=== PATIENT | male | born 1995 | race Caucasian/White ===

== ENCOUNTER 2016-11-10 07:14 | Emergency (ER) | payer SELFPAY ==
[2016-11-10 07:29] VITALS: BMI 30.9
[2016-11-10] MEDS ORDERED: ZOFRAN INJ 4 MG VIAL ONE (07:31)
[2016-11-10] MEDS ORDERED: NS 1000 ML 1,000 ML ONE (07:31)
--- NOTE | 2016-11-10 07:36 | DR.GENAD ---
HPI - PCP Primary Care Physician: NFD - Complaint/Symptoms Chief Complaint Doctors Comments: Patient reports that he fell onto the carpeted floor from the recliner and hit his head. He c/o neck and low back pain. At some point he blacked out, now c/o right hip and leg pain. He had previous episode in the past. Chief Complaint:: PASSED OUT INTO CHAIR AND HIT HEAD. HAS HAD SHAKES, AND BODY ACHES, WITH PAIN THAT RADIATES FROM RIGHT FLANK TO RIGHT UPPPER QUAD. PT STATES HE HAS BEEN COUGHING UP BLACK STUFF - Source History Provided: Patient - Mode of Arrival Mode of Arrival: Ambulatory - Timing Onset of Chief Complaint: 11/09/16 <YURY HARVEY - Last Filed: 11/10/16 08:13> PMH - PMH Past Medical History: No Past Surgical History: Yes Surgical History: Abdominal Surgery, Appendectomy, Cholecystectomy - Family History History of Family Medical Conditions: Yes Family Medical History: Diabetes Mellitus, [place], Coronary Artery Disease, Heart Failure, Hypertension - Social History Alcohol Use: None Do you use any recreational Drugs:: Yes (THC) Lives With: Family Lives Where: Home - infectious screening In the last 2 months have you had wt loss of >10#?: NO Have you had fever, night sweats or hemotysis?: No Have you traveled outside the country in the last 6 months?: No Isolation: Standard <YURY HARVEY - Last Filed: 11/10/16 08:13> ROS - Review of Systems Constitutional: No Symptoms Reported Eyes: No Symptoms Reported ENTM: No Symptoms Reported Respiratoy: No Symptoms Reported Cardiovascular: No Symptoms Reported Gastrointestinal/Abdominal: No Symptoms Reported Genitourinary: No Symptoms Reported Neurological: No Symptoms Reported Musculoskeletal: Back Pain, Leg (right) Integumentary: No Symptoms Reported Hematologic/Lymphatic: No Symptoms Reported Endocrine: No Symptoms Reported Psychiatric: No Symptoms Reported All Other Systems: Reviewed and Negative <YURY HARVEY - Last Filed: 11/10/16 08:13> PE - General Limitations: No Limitations General Appearance: Alert, Anxious - Head Head Exam: Normal Inspection, Atraumatic - ENT ENT Exam: Normal Exam, Normal Oropharynx External Ear Exam: Normal External Inspection TM/Canal Exam: Bilateral Normal Nose Exam: Normal Nose Exam Mouth Exam: Normal Inspection Throat Exam: Normal Inspection - Neck Neck Exam: Normal Inspection - Chest Chest Inspection: Normal Inspection - Respiratory Respiratory Exam: Normal Lung Sounds Bilat Respiratory Exam: Bilateral Clear to Auscultation - Cardiovascular Cardiovascular Exam: Regular Rate - Abdominal Exam Abdominal Exam: Normal Inspection Abdominal Tenderness: negative: RUQ, RLQ, LUQ, LLQ, Epigastrium, Suprapubic, Diffuse, Mild, Moderate, Severe, Other - Extremities Extremities Exam: Normal Inspection, Full ROM - Back Back Exam: Normal Inspection - Neurologic Neurological Exam: Alert, Oriented X3, CN II-XII Intact - Psychiatric Psychiatric Exam: Agitated - Skin Skin Exam: Warm, Dry, Intact <YURY HARVEY - Last Filed: 11/10/16 08:13> MDM - Differential Diagnosis Differential Diagnosis: FRACTURER, CONTUSION, SPRAIN, STRAIN <DOROTHEA TRAN - Last Filed: 11/10/16 09:42> Course - Reevaluation 1st: Improved (IMPROVE WITH PAIN MED.) - Education/Counseling Education/Counseling: Patient, Education Educated On: Diagnosis, Needs for Follow Up <DOROTHEA TRAN - Last Filed: 11/10/16 09:42> ROR - Labs Reviewed Laboratory Results Reviewed?: Yes Result Diagrams: 11/10/16 07:36 11/10/16 07:36 - XRAY XRAY Interpreted by: Radiologist XRAY Findings: REPORT DISCUSS WITH PATIENT. <DOROTHEA TRAN - Last Filed: 11/10/16 09:42> - Labs Reviewed Laboratory: WBC 9.9 X10^3/uL (3.6-10.0) 11/10/16 07:36 RBC 5.76 X10^6/uL (4.7-6.0) 11/10/16 07:36 Hgb 16.2 g/dL (13.5-18.0) 11/10/16 07:36 Hct 47.6 % (42.0-54.0) 11/10/16 07:36 MCV 82.7 fL (80.0-100.0) 11/10/16 07:36 MCH 28.2 pg (27.0-34.0) 11/10/16 07:36 MCHC 34.1 g/dL (33.0-35.0) 11/10/16 07:36 RDW 13.8 % (11.6-16.5) 11/10/16 07:36 Plt Count 153 X10^3/uL (150.0-450.0) 11/10/16 07:36 MPV 12.1 fL (7.4-11.0) H 11/10/16 07:36 Neut % 88.0 % (42.0-75.0) H 11/10/16 07:36 Lymph % 3.6 % (21.0-51.0) L 11/10/16 07:36 [place] % 7.4 % (0.0-13.0) 11/10/16 07:36 Eos % 0.5 % (0.9-2.9) L 11/10/16 07:36 Baso % 0.5 % (0.2-1.0) 11/10/16 07:36 Neut # 8.8 x10^3/uL (2.2-4.8) H 11/10/16 07:36 Lymph # 0.4 X10^3/uL (1.3-2.9) L 11/10/16 07:36 [place] # 0.7 x10^3/uL (0.3-0.8) 11/10/16 07:36 Eos # 0.0 x10^3/uL (0.0-0.2) 11/10/16 07:36 Baso # 0.0 X10^3/uL (0.0-0.1) 11/10/16 07:36 Absolute Nucleated RBC 0.0 /100WBC 11/10/16 07:36 Sodium 140 mmol/L (136-145) 11/10/16 07:36 Corrected Sodium 140 mmol/L (136-145) 11/10/16 07:36 Potassium 3.9 mmol/L (3.5-5.1) 11/10/16 07:36 Chloride 101 mmol/L (98-107) 11/10/16 07:36 Carbon Dioxide 27.7 mmol/L (21-32) 11/10/16 07:36 BUN 9 mg/dL (7-18) 11/10/16 07:36 Creatinine 1.01 mg/dL (0.70-1.30) 11/10/16 07:36 Est GFR (MDRD) Af Amer > 60 (>60) 11/10/16 07:36 Est GFR (MDRD) Non-Af > 60 (>60) 11/10/16 07:36 Glucose 112 mg/dL (65-99) H 11/10/16 07:36 Calcium 9.2 mg/dL (8.5-10.1) 11/10/16 07:36 Corrected Calcium TNP 11/10/16 07:36 Total Bilirubin 0.50 mg/dL (0.2-1.0) 11/10/16 07:36 AST 31 Units/L (15-37) 11/10/16 07:36 ALT 60 Units/L (12-78) 11/10/16 07:36 Alkaline Phosphatase 79 Units/L (46-116) 11/10/16 07:36 Total Protein 8.5 g/dL (6.4-8.2) H 11/10/16 07:36 Albumin 4.7 g/dL (3.4-5.0) 11/10/16 07:36 Globulin 3.8 g/dL (2.5-4.5) 11/10/16 07:36 Albumin/Globulin Ratio 1.2 Ratio (1.1-2.1) 11/10/16 07:36 Specimen Type Clean catch urine 11/10/16 08:50 Urine Color Yellow (YELLOW) 11/10/16 08:50 Urine Appearance Clear (CLEAR) 11/10/16 08:50 Urine pH 8.0 (5.0 - 8.0) 11/10/16 08:50 Ur Specific [place] 1.015 (1.000-1.030) 11/10/16 08:50 Urine Protein Negative (NEGATIVE) 11/10/16 08:50 Urine Glucose (UA) Negative (NEGATIVE) 11/10/16 08:50 Urine Ketones Negative (NEGATIVE) 11/10/16 08:50 Urine Occult Blood Negative (NEGATIVE) 11/10/16 08:50 Urine Nitrite Negative (NEGATIVE) 11/10/16 08:50 Urine Bilirubin Negative (NEGATIVE) 11/10/16 08:50 Urine Urobilinogen Normal (NORMAL) 11/10/16 08:50 Ur Leukocyte Esterase Negative (NEGATIVE) 11/10/16 08:50 Urine RBC 0-1 /HPF (NEGATIVE) 11/10/16 08:50 Urine WBC 0-1 /HPF (NEGATIVE) 11/10/16 08:50 Ur Squamous Epith Cells Rare /HPF (NEGATIVE) 11/10/16 08:50 Urine Bacteria Negative /HPF (NEGATIVE) 11/10/16 08:50 Ur Culture Indicated? No/not indicated 11/10/16 08:50 H. pylori IgG Antibody Negative (NEGATIVE) 11/10/16 07:36 (DOROTHEA TRAN) <YURY HARVEY - Last Filed: 11/10/16 08:13> <DOROTHEA TRAN - Last Filed: 11/10/16 09:42> - Diagnosis Discharge Problem: Back pain Qualifiers: Back pain location: low back pain Chronicity: acute Back pain laterality: bilateral Sciatica presence: without sciatica Qualified Code(s): M54.5 - Low back pain Lumbosacral strain Qualifiers: Encounter type: initial encounter Qualified Code(s): S39.012A - Strain of muscle, fascia and tendon of lower back, initial encounter - Discharge Plan Condition: Stable Prescriptions: Cyclobenzaprine HCl [FLEXERIL 10 MG *] 10 mg PO TID #20 tab Ketorolac Tromethamine [Toradol Tab] 10 mg PO Q8H PRN #15 tab PRN Reason: Pain Ranitidine HCl [ZANTAC TAB 150 MG *] 150 mg PO BID #20 tab - Follow ups/Referrals Follow ups/Referrals: NFD,None [Primary Care Provider] - 2 days - Instructions Instructions: Lumbosacral Strain, Back Pain, Adult, [id number] Additional Instructions: RETURN TO ED IF WORSE.
[2016-11-10] MEDS ORDERED: MORPHINE SULFATE INJ 4 MG IVP ONE (07:39)
[2016-11-10] MEDS ORDERED: ZOFRAN INJ 4 MG VIAL IVP ONE (07:40)
[2016-11-10] MEDS ORDERED: MORPHINE SULFATE INJ 4 MG ONE (07:42)
[2016-11-10] MEDS ORDERED: NS 1000 ML 1,000 ML IV SCH (08:00)
--- NOTE | 2016-11-10 08:24 | RAD ---
Examination: X-rays of the right hip. Clinical history: Fell, right hip pain. Technique: An AP view of the pelvis and a frog-leg lateral view of the right hip were obtained. Comparison: None available. Findings: No acute fracture, dislocation, or destructive bony lesion is noted. No arthropathy is noted at the hips bilaterally. Calcific densities are seen overlying the pelvis, likely due to phleboliths. A soft tissue opacity i s seen overlying the pelvis, likely a partially filled bladder. Impression: 1. No acute fracture or dislocation. Reported By:
--- NOTE | 2016-11-10 08:25 | RAD ---
Examination: X-rays of the lumbar spine. Clinical History: Fell, low back pain. Technique: Three views of the lumbar spine were obtained. Comparison: None available. Findings: The vertebral body alignment is within normal limits. The intervertebral disc spaces are well maintained. No arthropathy is noted. No acute fracture, dislocation or destructive bony lesion is noted. No spondylolysis or spondylolist hesis is noted. Surgical clips are seen overlying the right upper abdomen consistent with a prior cholecystectomy. C alcific densities are seen overlying the pelvis, likely to phleboliths. A soft tissue opacity is see n overlying the pelvis, likely a partially filled bladder. Impression: 1. No acute fracture or dislocation. Reported By:
--- NOTE | 2016-11-10 08:28 | CT ---
HISTORY: Fall, headache, vomiting Study: CT brain without contrast Comparison: March 30, 2016 Technique: Multiple axial images of the brain were obtained from the skull base to the vertex without administr ation of IV contrast. Findings: No acute intraparenchymal hemorrhage or mass can be identified. No extra-axial fluid collections ar e seen. No alteration in the attenuation of the brain parenchyma can be identified to suggest acute or subacute ischemic change. The ventricular system is symmetric and nondilated. Minimal mucosal thickening is seen within the right maxillary sinus. If symptoms or clinical concern persist recomme nd continued followup for further evaluation. IMPRESSION: 1. No acute intracranial process can be identified. Reported By:
--- NOTE | 2016-11-10 08:34 | CT ---
HISTORY: Fall Study: CT cervical spine without contrast Comparison: None Technique: Multiple axial images of the cervical spine were obtained from the skull base to the thor acic inlet without administration of IV contrast. Sagittal and coronal reformats were performed and reviewed. Findings: The cervical vertebral body heights are relatively maintained. No evidence for acute cortical disru ption or subluxation can be seen. The central canal remains free of compromise from bony fragments. The posterior elements appear unremarkable. The prevertebral soft tissues are normal in their robby earance. In addition, the surrounding paraspinous soft tissues are unremarkable. If symptoms or cli nical concern persist correlation with MRI may be helpful. IMPRESSION: 1. No evidence of acute osseous abnormality is appreciated. Reported By:
[2016-11-10] MEDS ORDERED: PROTONIX INJ 40 MG VIAL IVP ONE (08:41)
[2016-11-10] MEDS ORDERED: TORADOL 30 MG VIAL IVP ONE (08:41)
[2016-11-10 08:50] LABS: BASOPHILS % (AUTO) 0.5 % (0.2-1.0); EOSINOPHILS % (AUTO) 0.5 % (0.9-2.9); HEMATOCRIT 47.6 % (42.0-54.0); HEMOGLOBIN 16.2 g/dL (13.5-18.0); LYMPHOCYTES # (AUTO) 0.4 X10^3/uL (1.3-2.9); LYMPHOCYTES % (AUTO) 3.6 % (21.0-51.0); MEAN CORPUSCULAR HEMOGLOBIN 28.2 pg (27.0-34.0); MEAN CORPUSCULAR HGB CONC 34.1 g/dL (33.0-35.0); MEAN CORPUSCULAR VOLUME 82.7 fL (80.0-100.0); MEAN PLATELET VOLUME 12.1 fL (7.4-11.0); MONOCYTES # (AUTO) 0.7 x10^3/uL (0.3-0.8); MONOCYTES % (AUTO) 7.4 % (0.0-13.0); NEUTROPHILS # (AUTO) 8.8 x10^3/uL (2.2-4.8); PLATELET COUNT 153 X10^3/uL (150.0-450.0); RED BLOOD COUNT 5.76 X10^6/uL (4.7-6.0); RED CELL DISTRIBUTION WIDTH 13.8 % (11.6-16.5); WHITE BLOOD COUNT 9.9 X10^3/uL (3.6-10.0)
[2016-11-10] MEDS ORDERED: TORADOL 30 MG VIAL ONE (08:57)
[2016-11-10] MEDS ORDERED: PROTONIX INJ 40 MG VIAL ONE (08:57)
[2016-11-10 09:01] LABS: ALANINE AMINOTRANSFERASE 60 Units/L (12-78); ALBUMIN 4.7 g/dL (3.4-5.0); ALKALINE PHOSPHATASE 79 Units/L (46-116); ASPARTATE AMINO TRANSFERASE 31 Units/L (15-37); BLOOD UREA NITROGEN 9 mg/dL (7-18); CALCIUM 9.2 mg/dL (8.5-10.1); CARBON DIOXIDE 27.7 mmol/L (21-32); CHLORIDE 101 mmol/L (98-107); COR NA(FOR HYPERGLY) 140 mmol/L (136-145); CREATININE 1.01 mg/dL (0.70-1.30); GLUCOSE 112 mg/dL (65-99); SODIUM 140 mmol/L (136-145); TOTAL PROTEIN 8.5 g/dL (6.4-8.2); eGFR BLACK RACES > 60 (>60); eGFR NON BLACK RACES > 60 (>60)
[2016-11-10 09:10] LABS: BILIRUBIN,URINE NEGATIVE (NEGATIVE); BLOOD/HEMOGLOBIN,URINE NEGATIVE (NEGATIVE); GLUCOSE, URINE NEGATIVE (NEGATIVE); KETONES,URINE NEGATIVE (NEGATIVE); LEUKOCYTE ESTERASE ,URINE NEGATIVE (NEGATIVE); NITRITES,URINE NEGATIVE (NEGATIVE); PROTEIN,URINE NEGATIVE (NEGATIVE); UROBILINOGEN,URINE NORMAL (NORMAL)
[2016-11-10 09:18] LABS: APPEARANCE,URINE CLEAR (CLEAR); BACTERIA,URINE NEGATIVE /HPF (NEGATIVE); COLOR,URINE YELLOW (YELLOW); RBC,URINE 0-1 /HPF (NEGATIVE); SQUAMOUS EPITHELIAL CELL,UR RARE /HPF (NEGATIVE)
[2016-11-10 09:39] VITALS: BP 120/56
== END 2016-11-10 09:37 | disposition home or self-care (01) ==
LOC: ER 07:14
DX: S39.012A Strain of muscle, fascia and tendon of lower back, initial encounter (principal); M54.5 Low back pain; W01.198A Fall on same level from slipping, tripping and stumbling with subsequent striking against other object, initial encounter; Y92.9 Unspecified place or not applicable
CPT/HCPCS: 36415; 70450; 72100; 72125; 73501; 80053; 81001; 85025; 86677; 96365; 96367; 96374; 96375; 99283; A4222; C9113; J1885; J2270; J2405

== ENCOUNTER 2017-03-19 08:09 | Emergency (ER) | payer SELFPAY ==
[2017-03-19 08:15] VITALS: BP 160/84; BMI 29.3
--- NOTE | 2017-03-19 09:34 | DR.GENAD ---
HPI - PCP Primary Care Physician: NFD - HPI Comment HPI Comment: Pt c/o 2-3 h/o RUQ pain with loose stools but no fever, chills, sweats or vomiting. He is s/p cholecystectomy and appendectomy but is concerned due to family h/o pancreatic cancer. - Complaint/Symptoms Chief Complaint Doctors Comments: "RUQ pain" Chief Complaint:: PT C/O RUQ PAIN WITH DIARRHEA THAT STARTED THURSDAY. PT STATES THE PAIN HAS BEEN GETTING WORSE AND HE HAS NOTICED BLOOD IN HIS STOOL. - Nurses notes reviewed Nurses Notes Review: Yes - Source History Provided: Patient - Mode of Arrival Mode of Arrival: Ambulatory - Timing Onset of Chief Complaint: 03/17/17 Came on: Gradually - Duration Duration: Intermittent How lon Duration: Days - Location Location: RUQ - Severity Severity: Moderate - Modifying Factors Worsens:: lifting, loose stools worse after eating pork chops Improves:: rest PMH - PMH Past Medical History: No Past Surgical History: Yes Surgical History: Abdominal Surgery, Appendectomy, Cholecystectomy - Family History History of Family Medical Conditions: Yes Family Medical History: Diabetes Mellitus, [place], Coronary Artery Disease, Heart Failure, Hypertension Family Medical History Comment: PANCREATIC [place] - Social History Does any household member use tobacco: No Alcohol Use: None Do you use any recreational Drugs:: No Lives With: Alone Lives Where: Home - infectious screening In the last 2 months have you had wt loss of >10#?: NO Have you had fever, night sweats or hemotysis?: No Have you traveled outside the country in the last 6 months?: No Isolation: Standard ROS - Review of Systems Constitutional: No Symptoms Reported Respiratoy: No Symptoms Reported Cardiovascular: No Symptoms Reported Gastrointestinal/Abdominal: See HPI Genitourinary: No Symptoms Reported Neurological: No Symptoms Reported Musculoskeletal: No Symptoms Reported, Muscle Pain Integumentary: No Symptoms Reported Hematologic/Lymphatic: No Symptoms Reported Endocrine: No Symptoms Reported Psychiatric: No Symptoms Reported All Other Systems: Reviewed and Negative PE - Vital Signs Vitals: Temperature 98.6 F Pulse Rate 82 Respiratory Rate 20 Blood Pressure [Left Arm] 120/56 Blood Pressure [Right Arm] 141/70 Blood Pressure 160/84 O2 Sat by Pulse Oximetry 99 - General Limitations: No Limitations General Appearance: Alert, In No Apparent Distress - Head Head Exam: Normal Inspection - ENT Throat Exam: Normal Inspection - Neck Neck Exam: Normal Inspection, Full ROM, Trachea Midline - Chest Chest Inspection: Normal Inspection, Symmetric Chest Wall Rise - Respiratory Respiratory Exam: Normal Lung Sounds Bilat Respiratory Exam: Bilateral Clear to Auscultation - Cardiovascular Cardiovascular Exam: Regular Rate, Normal Rhythm, Normal Heart Sounds - Abdominal Exam Abdominal Exam: Soft, Tenderness (mild right para epigastric TTP). negative: Rebound, Dimnished Bowel Sounds, Organomegaly, Trauma, Mass, Bruit, Pulsatile Mass Abdominal Tenderness: RUQ, Epigastrium - Extremities Extremities Exam: Normal Inspection - Back Back Exam: Normal Inspection - Neurologic Neurological Exam: Alert, Oriented X3, CN II-XII Intact - Psychiatric Psychiatric Exam: Normal Affect, Normal Mood - Skin Skin Exam: Warm, Dry, Intact, Normal Color MDM - Differential Diagnosis Differential Diagnosis: Gastritis, Dumping Syndrome, Dyspepsia Course - Reevaluation 1st: Unchanged ROR - Labs Reviewed Laboratory Results Reviewed?: Yes Result Diagrams: 03/19/17 09:25 03/19/17 09:25 Laboratory: WBC 8.1 X10^3/uL (3.6-10.0) 03/19/17 09:25 RBC 6.01 X10^6/uL (4.7-6.0) H 03/19/17 09:25 Hgb 17.3 g/dL (13.5-18.0) 03/19/17 09:25 Hct 50.4 % (42.0-54.0) 03/19/17 09:25 MCV 83.8 fL (80.0-100.0) 03/19/17 09:25 MCH 28.8 pg (27.0-34.0) 03/19/17 09:25 MCHC 34.4 g/dL (33.0-35.0) 03/19/17 09:25 RDW 13.7 % (11.6-16.5) 03/19/17 09:25 Plt Count 184 X10^3/uL (150.0-450.0) 03/19/17 09:25 MPV 11.3 fL (7.4-11.0) H 03/19/17 09:25 Neut % 70.2 % (42.0-75.0) 03/19/17 09:25 Lymph % 20.3 % (21.0-51.0) L 08/10/17 09:25 [place] % 7.4 % (0.0-13.0) 03/19/17 09:25 Eos % 1.4 % (0.9-2.9) 03/19/17 09:25 Baso % 0.7 % (0.2-1.0) 03/19/17 09:25 Neut # 5.7 x10^3/uL (2.2-4.8) H 03/19/17 09:25 Lymph # 1.6 X10^3/uL (1.3-2.9) 03/19/17 09:25 [place] # 0.6 x10^3/uL (0.3-0.8) 03/19/17 09:25 Eos # 0.1 x10^3/uL (0.0-0.2) 03/19/17 09:25 Baso # 0.1 X10^3/uL (0.0-0.1) 03/19/17 09:25 Absolute Nucleated RBC 0.1 /100WBC 03/19/17 09:25 Sodium 138 mmol/L (136-145) 03/19/17 09:25 Corrected Sodium TNP 03/19/17 09:25 Potassium 4.2 mmol/L (3.5-5.1) 03/19/17 09:25 Chloride 102 mmol/L (98-107) 03/19/17 09:25 Carbon Dioxide 29.5 mmol/L (21-32) 03/19/17 09:25 BUN 11 mg/dL (7-18) 03/19/17 09:25 Creatinine 0.86 mg/dL (0.70-1.30) 03/19/17 09:25 Est GFR (MDRD) Af Amer > 60 (>60) 03/19/17 09:25 Est GFR (MDRD) Non-Af > 60 (>60) 03/19/17 09:25 Glucose 93 mg/dL (65-99) 03/19/17 09:25 Calcium 8.9 mg/dL (8.5-10.1) 03/19/17 09:25 Corrected Calcium TNP 03/19/17 09:25 Total Bilirubin 0.60 mg/dL (0.2-1.0) 03/19/17 09:25 AST 26 Units/L (15-37) 03/19/17 09:25 ALT 51 Units/L (12-78) 03/19/17 09:25 Alkaline Phosphatase 70 Units/L (46-116) 03/19/17 09:25 Total Protein 8.3 g/dL (6.4-8.2) H 03/19/17 09:25 Albumin 4.2 g/dL (3.4-5.0) 03/19/17 09:25 Globulin 4.1 g/dL (2.5-4.5) 03/19/17 09:25 Albumin/Globulin Ratio 1.0 Ratio (1.1-2.1) L 03/19/17 09:25 Amylase 61 Units/L (25-115) 03/19/17 09:25 Lipase 182 Units/L (73-393) 03/19/17 09:25 H. pylori IgG Antibody Negative (NEGATIVE) 03/19/17 09:25 - XRAY XRAY Interpreted by: Radiologist (no acute intraabdominal process is noted.) - Diagnosis Discharge Problem: RUQ pain, Post-cholecystectomy syndrome - Discharge Plan Disposition: HOME, SELF-CARE Condition: Stable - Follow ups/Referrals Follow ups/Referrals: NFD,None [Primary Care Provider] - 3 days - Instructions Instructions: Laparoscopic Cholecystectomy, Care After, [id number], Abdominal Pain, Adult, [id number], Gastritis, Adult
[2017-03-19 09:42] LABS: BASOPHILS # (AUTO) 0.1 X10^3/uL (0.0-0.1); BASOPHILS % (AUTO) 0.7 % (0.2-1.0); EOSINOPHILS # (AUTO) 0.1 x10^3/uL (0.0-0.2); EOSINOPHILS % (AUTO) 1.4 % (0.9-2.9); HEMATOCRIT 50.4 % (42.0-54.0); HEMOGLOBIN 17.3 g/dL (13.5-18.0); LYMPHOCYTES # (AUTO) 1.6 X10^3/uL (1.3-2.9); LYMPHOCYTES % (AUTO) 20.3 % (21.0-51.0); MEAN CORPUSCULAR HEMOGLOBIN 28.8 pg (27.0-34.0); MEAN CORPUSCULAR HGB CONC 34.4 g/dL (33.0-35.0); MEAN CORPUSCULAR VOLUME 83.8 fL (80.0-100.0); MEAN PLATELET VOLUME 11.3 fL (7.4-11.0); MONOCYTES # (AUTO) 0.6 x10^3/uL (0.3-0.8); MONOCYTES % (AUTO) 7.4 % (0.0-13.0); NEUTROPHILS # (AUTO) 5.7 x10^3/uL (2.2-4.8); NEUTROPHILS % (AUTO) 70.2 % (42.0-75.0); PLATELET COUNT 184 X10^3/uL (150.0-450.0); RED BLOOD COUNT 6.01 X10^6/uL (4.7-6.0); RED CELL DISTRIBUTION WIDTH 13.7 % (11.6-16.5); WHITE BLOOD COUNT 8.1 X10^3/uL (3.6-10.0)
--- NOTE | 2017-03-19 09:47 | RAD ---
HISTORY: Right upper quadrant pain Study: Acute abdominal series Comparison: None Findings: Cardiac silhouette is normal in size. No focal consolidation or pleural effusion is identified. The osseous thorax is unremarkable. The bowel gas pattern is nonobstructive. No convincing pneumatosis or free intraperitoneal air is id entified. Prior cholecystectomy is noted. No pathologic calcifications are identified. Regional skel eton is intact. IMPRESSION: 1. No acute cardiopulmonary disease. 2. No acute abdominal abnormality. Reported By:
[2017-03-19 10:01] LABS: AMYLASE 61 Units/L (25-115); LIPASE 182 Units/L (73-393)
[2017-03-19 10:04] LABS: ALANINE AMINOTRANSFERASE 51 Units/L (12-78); ALBUMIN 4.2 g/dL (3.4-5.0); ALKALINE PHOSPHATASE 70 Units/L (46-116); ASPARTATE AMINO TRANSFERASE 26 Units/L (15-37); BLOOD UREA NITROGEN 11 mg/dL (7-18); CALCIUM 8.9 mg/dL (8.5-10.1); CARBON DIOXIDE 29.5 mmol/L (21-32); CHLORIDE 102 mmol/L (98-107); CREATININE 0.86 mg/dL (0.70-1.30); GLUCOSE 93 mg/dL (65-99); SODIUM 138 mmol/L (136-145); TOTAL PROTEIN 8.3 g/dL (6.4-8.2); eGFR BLACK RACES > 60 (>60); eGFR NON BLACK RACES > 60 (>60)
== END 2017-03-19 10:29 | disposition home or self-care (01) ==
LOC: ER 08:51
DX: R10.11 Right upper quadrant pain (principal); K91.5 Postcholecystectomy syndrome
CPT/HCPCS: 36415; 74022; 80053; 82150; 83690; 85025; 86677; 99282; 99283

== ENCOUNTER 2017-05-19 08:51 | Emergency (ER) | payer SELFPAY ==
[2017-05-19 08:55] VITALS: BP 141/71; BMI 29.3
[2017-05-19 10:02] LABS: BILIRUBIN,URINE NEGATIVE (NEGATIVE); BLOOD/HEMOGLOBIN,URINE NEGATIVE (NEGATIVE); GLUCOSE, URINE NEGATIVE (NEGATIVE); KETONES,URINE NEGATIVE (NEGATIVE); LEUKOCYTE ESTERASE ,URINE NEGATIVE (NEGATIVE); NITRITES,URINE NEGATIVE (NEGATIVE); PROTEIN,URINE NEGATIVE (NEGATIVE); UROBILINOGEN,URINE NORMAL (NORMAL)
[2017-05-19 10:12] LABS: APPEARANCE,URINE CLEAR (CLEAR); BACTERIA,URINE NEGATIVE /HPF (NEGATIVE); COLOR,URINE YELLOW (YELLOW); RBC,URINE NONE SEEN /HPF (NEGATIVE); SQUAMOUS EPITHELIAL CELL,UR FEW /HPF (NEGATIVE)
[2017-05-19 10:14] LABS: BASOPHILS # (AUTO) 0.1 X10^3/uL (0.0-0.1); BASOPHILS % (AUTO) 0.9 % (0.2-1.0); EOSINOPHILS # (AUTO) 0.2 x10^3/uL (0.0-0.2); EOSINOPHILS % (AUTO) 2.5 % (0.9-2.9); HEMATOCRIT 47.1 % (42.0-54.0); HEMOGLOBIN 16.3 g/dL (13.5-18.0); LYMPHOCYTES # (AUTO) 1.7 X10^3/uL (1.3-2.9); LYMPHOCYTES % (AUTO) 22.6 % (21.0-51.0); MEAN CORPUSCULAR HEMOGLOBIN 28.5 pg (27.0-34.0); MEAN CORPUSCULAR HGB CONC 34.6 g/dL (33.0-35.0); MEAN CORPUSCULAR VOLUME 82.3 fL (80.0-100.0); MEAN PLATELET VOLUME 11.1 fL (7.4-11.0); MONOCYTES # (AUTO) 0.5 x10^3/uL (0.3-0.8); MONOCYTES % (AUTO) 6.9 % (0.0-13.0); NEUTROPHILS % (AUTO) 67.1 % (42.0-75.0); PLATELET COUNT 158 X10^3/uL (150.0-450.0); RED BLOOD COUNT 5.73 X10^6/uL (4.7-6.0); RED CELL DISTRIBUTION WIDTH 13.4 % (11.6-16.5); WHITE BLOOD COUNT 7.4 X10^3/uL (3.6-10.0)
[2017-05-19 10:27] LABS: ALANINE AMINOTRANSFERASE 60 Units/L (12-78); ALBUMIN 4.1 g/dL (3.4-5.0); ALKALINE PHOSPHATASE 74 Units/L (46-116); ASPARTATE AMINO TRANSFERASE 25 Units/L (15-37); BLOOD UREA NITROGEN 12 mg/dL (7-18); CALCIUM 9.5 mg/dL (8.5-10.1); CARBON DIOXIDE 29.6 mmol/L (21-32); CHLORIDE 104 mmol/L (98-107); CREATININE 0.95 mg/dL (0.70-1.30); SODIUM 141 mmol/L (136-145); TOTAL PROTEIN 7.9 g/dL (6.4-8.2); eGFR BLACK RACES > 60 (>60); eGFR NON BLACK RACES > 60 (>60)
--- NOTE | 2017-05-19 10:40 | DR.GENAD ---
HPI - PCP Primary Care Physician: gray - HPI Comment HPI Comment: NOTED BLOOD, RED IN VOMITUS. NO DIARRHEA OR MELENA. - Complaint/Symptoms Chief Complaint Doctors Comments: EPIGASTRIC ABDOMINAL PAIN WITH VOMITING 3 TIMES TODAY. Chief Complaint:: patient stated he was hurting in his abd and vomited 3 times and noticed blood in his vomit. he stated he abd stoped hurting after that. - Nurses notes reviewed Nurses Notes Review: Yes - Source History Provided: Patient - Mode of Arrival Mode of Arrival: Ambulatory - Timing Onset of Chief Complaint: 05/19/17 Came on: Suddenly - Duration Duration: Constant Duration: Hours - Severity Severity: Moderate PMH - PMH Past Medical History: Yes Past Medical History: GERD Past Surgical History: Yes Surgical History: Appendectomy, Cholecystectomy - Family History History of Family Medical Conditions: No Family Medical History: Diabetes Mellitus, [place], Coronary Artery Disease, Heart Failure, Hypertension - Social History Does patient currently use any type of tobacco product: No Have you used tobacco products in the last 12 months: No Type of Tobacco Use: None Does any household member use tobacco: No Alcohol Use: None Do you use any recreational Drugs:: No Lives With: Family Lives Where: Home - infectious screening In the last 2 months have you had wt loss of >10#?: NO Have you had fever, night sweats or hemotysis?: No Have you traveled outside the country in the last 6 months?: No Isolation: Standard ROS - Review of Systems Constitutional: No Symptoms Reported Eyes: No Symptoms Reported ENTM: No Symptoms Reported Respiratoy: No Symptoms Reported Cardiovascular: No Symptoms Reported Gastrointestinal/Abdominal: Abdominal Pain, Nausea Genitourinary: No Symptoms Reported Neurological: No Symptoms Reported Musculoskeletal: No Symptoms Reported Integumentary: No Symptoms Reported Hematologic/Lymphatic: No Symptoms Reported Endocrine: No Symptoms Reported All Other Systems: Reviewed and Negative PE - Vital Signs Vitals: Temperature 98.7 F Pulse Rate 66 Respiratory Rate 16 Blood Pressure [Left Arm] 120/56 Blood Pressure [Right Arm] 141/70 Blood Pressure 141/71 O2 Sat by Pulse Oximetry 100 - General Limitations: No Limitations General Appearance: Alert - Head Head Exam: Normal Inspection - Eyes Eye exam: Normal Appearance - ENT ENT Exam: Normal External Ear Exam External Ear Exam: Normal External Inspection TM/Canal Exam: Bilateral Normal Nose Exam: Normal Nose Exam Mouth Exam: Normal Inspection Throat Exam: Normal Inspection - Neck Neck Exam: Normal Inspection, Trachea Midline - Chest Chest Inspection: Symmetric Chest Wall Rise - Respiratory Respiratory Exam: Normal Lung Sounds Bilat Respiratory Exam: Bilateral Clear to Auscultation - Cardiovascular Cardiovascular Exam: Regular Rate, Normal Rhythm, Normal Heart Sounds - Abdominal Exam Abdominal Exam: Normal Bowel Sounds, Soft, Tenderness Abdominal Tenderness: Epigastrium, Moderate - Extremities Extremities Exam: Normal Inspection - Back Back Exam: Normal Inspection - Neurologic Neurological Exam: Alert, Oriented X3 - Psychiatric Psychiatric Exam: Normal Affect, Normal Mood - Skin Skin Exam: Normal Color MDM - Differential Diagnosis Differential Diagnosis: EPIGASTRIC PAIN, PUD, REFLUX ESOPHAGITIS Course - Treatment Treatment: SEE ORDERS. - Education/Counseling Education/Counseling: Patient, Education Educated On: Treatment, Diagnosis, Needs for Follow Up ROR - Labs Reviewed Laboratory Results Reviewed?: Yes Result Diagrams: 05/19/17 10:10 05/19/17 10:10 Laboratory: WBC 7.4 X10^3/uL (3.6-10.0) 05/19/17 10:10 RBC 5.73 X10^6/uL (4.7-6.0) 05/19/17 10:10 Hgb 16.3 g/dL (13.5-18.0) 05/19/17 10:10 Hct 47.1 % (42.0-54.0) 05/19/17 10:10 MCV 82.3 fL (80.0-100.0) 05/19/17 10:10 MCH 28.5 pg (27.0-34.0) 05/19/17 10:10 MCHC 34.6 g/dL (33.0-35.0) 05/19/17 10:10 RDW 13.4 % (11.6-16.5) 05/19/17 10:10 Plt Count 158 X10^3/uL (150.0-450.0) 05/19/17 10:10 MPV 11.1 fL (7.4-11.0) H 05/19/17 10:10 Neut % 67.1 % (42.0-75.0) 05/19/17 10:10 Lymph % 22.6 % (21.0-51.0) 05/19/17 10:10 [place] % 6.9 % (0.0-13.0) 05/19/17 10:10 Eos % 2.5 % (0.9-2.9) 05/19/17 10:10 Baso % 0.9 % (0.2-1.0) 05/19/17 10:10 Neut # 5.0 x10^3/uL (2.2-4.8) H 05/19/17 10:10 Lymph # 1.7 X10^3/uL (1.3-2.9) 05/19/17 10:10 [place] # 0.5 x10^3/uL (0.3-0.8) 05/19/17 10:10 Eos # 0.2 x10^3/uL (0.0-0.2) 05/19/17 10:10 Baso # 0.1 X10^3/uL (0.0-0.1) 05/19/17 10:10 Absolute Nucleated RBC 0.0 /100WBC 05/19/17 10:10 Sodium 141 mmol/L (136-145) 05/19/17 10:10 Corrected Sodium TNP 05/19/17 10:10 Potassium 4.4 mmol/L (3.5-5.1) 05/19/17 10:10 Chloride 104 mmol/L (98-107) 05/19/17 10:10 Carbon Dioxide 29.6 mmol/L (21-32) 05/19/17 10:10 BUN 12 mg/dL (7-18) 05/19/17 10:10 Creatinine 0.95 mg/dL (0.70-1.30) 05/19/17 10:10 Est GFR (MDRD) Af Amer > 60 (>60) 05/19/17 10:10 Est GFR (MDRD) Non-Af > 60 (>60) 05/19/17 10:10 Glucose 96 mg/dL (65-99) 05/19/17 10:10 Calcium 9.5 mg/dL (8.5-10.1) 05/19/17 10:10 Corrected Calcium TNP 05/19/17 10:10 Total Bilirubin 0.30 mg/dL (0.2-1.0) 05/19/17 10:10 AST 25 Units/L (15-37) 05/19/17 10:10 ALT 60 Units/L (12-78) 05/19/17 10:10 Alkaline Phosphatase 74 Units/L (46-116) 05/19/17 10:10 Total Protein 7.9 g/dL (6.4-8.2) 05/19/17 10:10 Albumin 4.1 g/dL (3.4-5.0) 05/19/17 10:10 Globulin 3.8 g/dL (2.5-4.5) 05/19/17 10:10 Albumin/Globulin Ratio 1.1 Ratio (1.1-2.1) 05/19/17 10:10 Specimen Type Clean catch urine 05/19/17 09:45 Urine Color Yellow (YELLOW) 05/19/17 09:45 Urine Appearance Clear (CLEAR) 05/19/17 09:45 Urine pH 6.0 (5.0 - 8.0) 05/19/17 09:45 Ur Specific [place] 1.010 (1.000-1.030) 05/19/17 09:45 Urine Protein Negative (NEGATIVE) 05/19/17 09:45 Urine Glucose (UA) Negative (NEGATIVE) 05/19/17 09:45 Urine Ketones Negative (NEGATIVE) 05/19/17 09:45 Urine Occult Blood Negative (NEGATIVE) 05/19/17 09:45 Urine Nitrite Negative (NEGATIVE) 05/19/17 09:45 Urine Bilirubin Negative (NEGATIVE) 05/19/17 09:45 Urine Urobilinogen Normal (NORMAL) 05/19/17 09:45 Ur Leukocyte Esterase Negative (NEGATIVE) 05/19/17 09:45 Urine RBC None seen /HPF (NEGATIVE) 05/19/17 09:45 Urine WBC None seen /HPF (NEGATIVE) 05/19/17 09:45 Ur Squamous Epith Cells Few /HPF (NEGATIVE) 05/19/17 09:45 Urine Bacteria Negative /HPF (NEGATIVE) 05/19/17 09:45 Ur Culture Indicated? No/not indicated 05/19/17 09:45 H. pylori IgG Antibody Negative (NEGATIVE) 05/19/17 10:10 - XRAY XRAY Interpreted by: Radiologist XRAY Findings: REPORT DISCUSS WITH PATIENT. - Diagnosis Discharge Problem: Abdominal pain Qualifiers: Abdominal location: upper abdomen, unspecified Qualified Code(s): R10.10 - Upper abdominal pain, unspecified - Discharge Plan Disposition: 01 HOME, SELF-CARE Condition: Stable Prescriptions: Esomeprazole Magnesium [Nexium] 40 mg PO HS #30 cap Gi Cocktail [LEVSIN/Maalox/Lidoc Visc (GI COCKTAIL) *] 30 ml PO QID #240 ml - Follow ups/Referrals Follow ups/Referrals: HERVE OTOOLE [Primary Care Provider] - 3 days - Instructions Instructions: Abdominal Pain, Adult, [id number] Additional Instructions: RETURN TO ED IF WORSE.
[2017-05-19] MEDS ORDERED: LEVSIN/MAALOX/LIDOC VISC ONE (12:19)
[2017-05-19] MEDS ORDERED: PROTONIX TAB 40 MG PO ONE (12:19)
[2017-05-19] MEDS: PROTONIX TAB 40 MG PO ONE (12:21)
[2017-05-19] MEDS: LEVSIN/MAALOX/LIDOC VISC PO ONE (12:22)
--- NOTE | 2017-05-19 12:28 | RAD ---
HISTORY: Abdominal pain Study: Acute abdominal series Comparison: 03/19/2017 Findings: The lungs are clear without consolidation, effusion or pneumothorax. The cardiac and mediastinal con tours are within normal limits. Flat plate and upright evaluation of the abdomen demonstrates a normal bowel gas pattern. No gross fr ee intraperitoneal air. No pathological soft tissue mass or calcification can be observed. The bony structures are grossly intact. Cholecystectomy clips are noted. IMPRESSION: 1. No acute cardiopulmonary disease. 2. No evidence of acute abdominal pathology. Reported By:
== END 2017-05-19 12:53 | disposition home or self-care (01) ==
LOC: ER 09:04
DX: R10.13 Epigastric pain (principal)
CPT/HCPCS: 36415; 74022; 80053; 81001; 85025; 86677; 99282

== ENCOUNTER 2017-08-04 19:59 | Emergency (ER) | payer OTHER ==
[2017-08-04 20:15] VITALS: BMI 29.3
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
[2017-08-04] MEDS ORDERED: TORADOL 60 MG VIAL IM ONE (21:50)
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
[2017-08-04] MEDS ORDERED: TORADOL 60 MG VIAL ONE (21:56)
[2017-08-04 22:19] VITALS: BP 132/64
== END 2017-08-04 22:23 | disposition home or self-care (01) ==
LOC: ER 20:05
DX: S23.3XXA Sprain of ligaments of thoracic spine, initial encounter (principal); Z04.3 Encounter for examination and observation following other accident; S20.212A Contusion of left front wall of thorax, initial encounter; S13.9XXA Sprain of joints and ligaments of unspecified parts of neck, initial encounter; R51 Headache; V89.2XXA Person injured in unspecified motor-vehicle accident, traffic, initial encounter; Y92.9 Unspecified place or not applicable
CPT/HCPCS: 70450; 71250; 72125; 72128; 96372; 99282; 99283; J1885

== ENCOUNTER 2017-12-15 08:11 | Emergency (ER) | payer SELFPAY ==
[2017-12-15 08:14] VITALS: BP 128/76; BMI 29.3
[2017-12-15] MEDS ORDERED: NS 1000 ML 1,000 ML IV ONE (09:04)
[2017-12-15] MEDS ORDERED: ZOFRAN INJ 4 MG VIAL IVP ONE (09:04)
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
[2017-12-15] MEDS ORDERED: NS 1000 ML 1,000 ML ONE (09:07)
[2017-12-15] MEDS ORDERED: ZOFRAN INJ 4 MG VIAL ONE (09:08)
[2017-12-15 09:24] LABS: BASOPHILS % (AUTO) 0.7 % (0.2-1.0); EOSINOPHILS # (AUTO) 0.2 x10^3/uL (0.0-0.2); EOSINOPHILS % (AUTO) 2.7 % (0.9-2.9); HEMATOCRIT 47.7 % (42.0-54.0); HEMOGLOBIN 16.3 g/dL (13.5-18.0); LYMPHOCYTES # (AUTO) 1.6 X10^3/uL (1.3-2.9); LYMPHOCYTES % (AUTO) 25.8 % (21.0-51.0); MEAN CORPUSCULAR HEMOGLOBIN 28.6 pg (27.0-34.0); MEAN CORPUSCULAR HGB CONC 34.2 g/dL (33.0-35.0); MEAN CORPUSCULAR VOLUME 83.8 fL (80.0-100.0); MEAN PLATELET VOLUME 11.2 fL (7.4-11.0); MONOCYTES # (AUTO) 0.5 x10^3/uL (0.3-0.8); MONOCYTES % (AUTO) 7.2 % (0.0-13.0); NEUTROPHILS % (AUTO) 63.6 % (42.0-75.0); PLATELET COUNT 186 X10^3/uL (150.0-450.0); RED BLOOD COUNT 5.69 X10^6/uL (4.7-6.0); RED CELL DISTRIBUTION WIDTH 13.6 % (11.6-16.5); WHITE BLOOD COUNT 6.3 X10^3/uL (3.6-10.0)
[2017-12-15 09:46] LABS: ALANINE AMINOTRANSFERASE 38 Units/L (12-78); ALBUMIN 4.4 g/dL (3.4-5.0); ALKALINE PHOSPHATASE 76 Units/L (46-116); ASPARTATE AMINO TRANSFERASE 16 Units/L (15-37); BLOOD UREA NITROGEN 13 mg/dL (7-18); CALCIUM 8.8 mg/dL (8.5-10.1); CARBON DIOXIDE 31.5 mmol/L (21-32); CHLORIDE 103 mmol/L (98-107); CREATININE 0.92 mg/dL (0.70-1.30); SODIUM 141 mmol/L (136-145); TOTAL PROTEIN 8.4 g/dL (6.4-8.2); eGFR BLACK RACES > 60 (>60); eGFR NON BLACK RACES > 60 (>60)
[2017-12-15 10:11] LABS: BILIRUBIN,URINE NEGATIVE (NEGATIVE); BLOOD/HEMOGLOBIN,URINE NEGATIVE (NEGATIVE); GLUCOSE, URINE NEGATIVE (NEGATIVE); KETONES,URINE NEGATIVE (NEGATIVE); LEUKOCYTE ESTERASE ,URINE 1+ (NEGATIVE); NITRITES,URINE NEGATIVE (NEGATIVE); PH,URINE 6.5 (5.0 - 8.0); PROTEIN,URINE NEGATIVE (NEGATIVE); UROBILINOGEN,URINE NORMAL (NORMAL)
[2017-12-15 10:19] LABS: APPEARANCE,URINE CLEAR (CLEAR); COLOR,URINE YELLOW (YELLOW); RBC,URINE 0-2 /HPF (NONE SEEN); SQUAMOUS EPITHELIAL CELL,UR NEGATIVE /HPF (NEGATIVE)
[2017-12-15 10:20] LABS: BACTERIA,URINE NEGATIVE /HPF (NEGATIVE)
[2017-12-15] MEDS ORDERED: PEPCID 20 MG IV PREMIX* 20 MG/50 ML BAG IV ONE ×2 (10:21→10:25)
[2017-12-15] MEDS ORDERED: TORADOL 30 MG VIAL IVP ONE (10:21)
[2017-12-15] MEDS ORDERED: TORADOL 30 MG VIAL ONE (10:25)
--- NOTE | 2017-12-15 11:05 | RAD ---
HISTORY: Nausea, vomiting, diarrhea which began yesterday. Dizziness, weakness and body aches. Study: Acute abdominal series Comparison: May 19, 2017. Findings: The trachea is midline. The cardiac silhouette is unremarkable. The lungs are clear without focal i nfiltrate or effusion. The bony thorax is unremarkable. Flat plate and upright evaluation of the abdomen demonstrates a normal bowel gas pattern. No patholo gical soft tissue mass or calcification can be observed. The bony structures are grossly intact. IMPRESSION: 1. No acute cardiopulmonary disease. 2. No evidence for acute abdominal pathology identified. Reported By:
== END 2017-12-15 11:16 | disposition home or self-care (01) ==
LOC: ER 08:18
DX: K52.89 Other specified noninfective gastroenteritis and colitis (principal); R10.84 Generalized abdominal pain
CPT/HCPCS: 36415; 74022; 80053; 81001; 82550; 85025; 96365; 96374; 96375; 99283; 99284; A4222; S0028; J1885; J2405